=== PATIENT | female | born 1945 | race African-American/Black ===

== ENCOUNTER 2016-10-25 12:14 | Outpatient (CLI) | payer MEDICARE, MEDICAID ==
[~2016-10-25 12:14] MED LIST: ACET650T10 PO; BISM525O70 PO; HYDR-552 PO; HYDR200T PO; IBUP200C48 PO; MAGN400O6 PO; OMEP40CA PO; PRED2.5T PO; QUET25TA PO; QUET50TA PO; SENN-18 PO; SERT50TA PO; SIME80TA15 PO
== END 2016-10-25 23:59 | disposition home or self-care (01) ==
LOC: MRI 12:14
DX: G20 Parkinson's disease (principal)
CPT/HCPCS: 70551-TC